=== PATIENT | male | born 1965 | race Caucasian/White ===

== ENCOUNTER 2018-10-13 18:42 | Emergency (ER) | payer BC ==
[~2018-10-13] VITALS: Ht 182.9 cm; Wt 85.3 kg
[2018-10-13] MEDS ORDERED: ASPIR 8181 MG (18:55)
[2018-10-13] MEDS ORDERED: STERILE SALINE126 ML (18:55)
== END 2018-10-13 19:19 | disposition home or self-care (01) ==
LOC: ER 18:42
DX: T16.2XXA Foreign body in left ear, initial encounter (principal); W45.8XXA Other foreign body or object entering through skin, initial encounter; Y93.89 Activity, other specified; Y92.89 Other specified places as the place of occurrence of the external cause; Y99.8 Other external cause status